=== PATIENT | male | born 1940 | race Caucasian/White ===

== ENCOUNTER 2017-06-19 10:20 | Emergency (ER) | payer OTHER, MEDICARE ==
[~2017-06-19] VITALS: Wt 86.2 kg
[~2017-06-19 10:20] MED LIST: COUMADIN1 MG PO; COUMADIN5 M2 PO; HYDROCODONE BIT1 T11 PO; KEFLEX500 M1 PO; KEFLEX500 MG PO; LOPRESSOR25 MG PO; SIMVASTATIN5 MG PO; ZOCOR10 MG PO; ZOLOFT25 MG PO
[2017-06-19 10:27] VITALS: BP 131/51
[2017-06-19 11:03] LABS: BASO % 0.4 % (0.0-1.0); EOS # 0.1 10*3/uL (0.0-0.4); EOS % 1.5 % (1.0-4.0); HEMATOCRIT 37.1 % (42.0-52.0); LYMPH # 0.9 10*3/uL (1.3-4.4); MEAN CELL VOLUME 92.5 fl (80.0-94.0); MEAN CORPUSCULAR HGB 29.9 pg (27.0-31.0); MEAN CORPUSCULAR HGB CONC 32.3 g/dl (33.0-37.0); MEAN PLATELET VOLUME 9.2 fl (9.6-12.3); MONO # 0.4 10*3/uL (0.1-1.0); MONO % 6.7 % (3.0-9.0); NEUT % 74.8 % (47.0-73.0); PLATELET COUNT AUTOMATED 165 10*3/uL (130-400); RED BLOOD COUNT 4.01 10*6/uL (4.50-5.90); RED CELL DISTRI WIDTH 13.7 % (0-14.5); WHITE BLOOD COUNT 5.4 10*3/uL (4.8-10.8)
[2017-06-19 11:18] LABS: ACT PARTIAL THROMBO TIME 43.6 SECONDS (20.8-31.5); INTERNATIONAL NORM RATIO 4.5 (2.0-3.5)
[2017-06-19 11:22] LABS: BUN 24 mg/dl (7-24); CHLORIDE 108 mmol/L (98-107); CREATININE 1.71 mg/dL (0.70-1.30); SODIUM 141 mmol/L (136-145)
[2017-06-19 11:24] LABS: TROPONIN I < 0.015 ng/ml (<0.045)
[2017-06-19] MEDS ORDERED: CEPHALEXIN500 M1 PO (13:11)
== END 2017-06-19 13:15 | disposition home or self-care (01) ==
LOC: ED 10:20
PROVIDERS: Emergency Medicine
DX: L03.211 Cellulitis of face (principal); R79.1 Abnormal coagulation profile; R05 Cough; Z79.899 Other long term (current) drug therapy; Z79.02 Long term (current) use of antithrombotics/antiplatelets

== ENCOUNTER 2017-09-03 08:00 | Emergency (ER) | payer MEDICARE, OTHER ==
[~2017-09-03] VITALS: Wt 74.8 kg
--- NOTE | ~2017-09-03 | EKG ---
[place], [place] ELECTROCARDIOGRAM REPORT NAME: SERENA CHEN UNIT #: [id number] ROOM: DOCTOR: EPIPHDONNY DRAFT REPORT BIRTHDATE: [birth year] [facility] Test Date: 2017-09-03 Test Time: 08:04:39 Pat Name: SERENA CHEN Department: Room: Gender: Home Health Nurse: Ruddy : 1940 Requested By: ALE ALCOCER Order Number: [id number] Reading MD: Yasir Hatch MD Measurements Intervals [place] Rate: 107 P: 68 VA: 141 QRS: 80 QRSD: 98 T: 53 QT: 340 QTc: 454 Interpretive Statements Sinus tachycardia Ventricular premature complex Borderline repolarization abnormality Electronically Signed On 09-03-2017 20:35:41 PDT by Yasir Hatch MD CM:EKGRPT:ELECTROCARDIOGRAM REPORT 3 34 ALE BERNAL DRAFT REPORT ALE ALCOCER M.D.
[~2017-09-03 08:00] MED LIST changes: +CEPHALEXIN500 M1 PO
[2017-09-03 08:25] LABS: BASO % 0.1 % (0.0-1.0); EOS # 0.1 10*3/uL (0.0-0.4); EOS % 0.7 % (1.0-4.0); HEMATOCRIT 37.9 % (42.0-52.0); LYMPH # 0.7 10*3/uL (1.3-4.4); LYMPH % 10.4 % (27.0-41.0); MEAN CELL VOLUME 92.9 fl (80.0-94.0); MEAN CORPUSCULAR HGB 29.4 pg (27.0-31.0); MEAN CORPUSCULAR HGB CONC 31.7 g/dl (33.0-37.0); MEAN PLATELET VOLUME 9.2 fl (9.6-12.3); MONO # 0.3 10*3/uL (0.1-1.0); MONO % 4.6 % (3.0-9.0); NEUT # 5.8 10*3/uL (2.3-7.9); NEUT % 83.9 % (47.0-73.0); PLATELET COUNT AUTOMATED 125 10*3/uL (130-400); RED BLOOD COUNT 4.08 10*6/uL (4.50-5.90); RED CELL DISTRI WIDTH 15.5 % (0-14.5); WHITE BLOOD COUNT 6.9 10*3/uL (4.8-10.8)
[2017-09-03 08:40] LABS: ALBUMIN 3.4 gm/dl (3.1-4.5); CREATININE 1.97 mg/dL (0.70-1.30); INTERNATIONAL NORM RATIO 3.9 (2.0-3.5); POTASSIUM 4.3 mmol/L (3.5-5.1); TOTAL PROTEIN 8.1 gm/dL (6.4-8.2)
[2017-09-03] MEDS ORDERED: VIBRAMYCIN100 MG PO (11:11)
[2017-09-03 11:31] VITALS: BP 162/90
== END 2017-09-03 11:34 | disposition home or self-care (01) ==
LOC: ED 08:00
PROVIDERS: Emergency Medicine
DX: J44.1 Chronic obstructive pulmonary disease with (acute) exacerbation (principal); F17.200 Nicotine dependence, unspecified, uncomplicated; Z79.899 Other long term (current) drug therapy; Z79.02 Long term (current) use of antithrombotics/antiplatelets

== ENCOUNTER 2017-09-18 18:04 | Emergency (ER) | payer MEDICARE, OTHER ==
[~2017-09-18] VITALS: Wt 86.2 kg
--- NOTE | ~2017-09-18 | EKG ---
[place], [place] ELECTROCARDIOGRAM REPORT NAME: SERENA CHEN UNIT #: [id number] ROOM: DOCTOR: EPIPHANY DRAFT REPORT BIRTHDATE: [birth year] [facility] Test Date: 2017-09-18 Test Time: 21:22:10 Pat Name: SERENA CHEN Department: ER Room: 22 Gender: M Professor Of Medicine: EKG.NC : 1940 Requested By: GERONIMO SETH Order Number: [id number] Reading MD: James Bhatti MD Measurements Intervals [place] Rate: 97 P: 56 TX: 161 QRS: 75 QRSD: 92 T: 27 QT: 352 QTc: 447 Interpretive Statements Sinus rhythm Low voltage, precordial leads RSR' in V1 or V2, right VCD or RVH Artifact in lead(s) I,II,aVR,aVL,aVF,V1,V2,V3,V4,V5,V6 Compared to ECG 09/03/2017 08:04:39 Low QRS voltage now present Right ventricular hypertrophy now present RSR' in V1 or V2 now present Sinus tachycardia no longer present Ventricular premature complex(es) no longer present Electronically Signed On 09-21-2017 8:19:39 PDT by James Bhatti MD CM:EKGRPT:ELECTROCARDIOGRAM REPORT 21 8 GERONIMO SETH EPIPHANY DRAFT REPORT GERONIMO SETH
[~2017-09-18 18:04] MED LIST changes: +VIBRAMYCIN100 MG PO
[2017-09-18 18:44] LABS: BASO % 0.3 % (0.0-1.0); EOS # 0.1 10*3/uL (0.0-0.4); EOS % 1.3 % (1.0-4.0); HEMATOCRIT 39.3 % (42.0-52.0); HEMOGLOBIN 12.7 g/dl (14.0-18.0); LYMPH # 1.4 10*3/uL (1.3-4.4); LYMPH % 22.9 % (27.0-41.0); MEAN CELL VOLUME 92.5 fl (80.0-94.0); MEAN CORPUSCULAR HGB 29.9 pg (27.0-31.0); MEAN CORPUSCULAR HGB CONC 32.3 g/dl (33.0-37.0); MEAN PLATELET VOLUME 9.3 fl (9.6-12.3); MONO # 0.4 10*3/uL (0.1-1.0); MONO % 7.2 % (3.0-9.0); NEUT # 4.1 10*3/uL (2.3-7.9); PLATELET COUNT AUTOMATED 164 10*3/uL (130-400); RED BLOOD COUNT 4.25 10*6/uL (4.50-5.90); RED CELL DISTRI WIDTH 15.2 % (0-14.5)
[2017-09-18 19:01] LABS: ALBUMIN 3.2 gm/dl (3.1-4.5); CREATININE 2.07 mg/dL (0.70-1.30); POTASSIUM 5.1 mmol/L (3.5-5.1); TOTAL PROTEIN 7.9 gm/dL (6.4-8.2)
[2017-09-18 19:09] LABS: INTERNATIONAL NORM RATIO 8.7 (2.0-3.5)
[2017-09-18 20:53] LABS: INTERNATIONAL NORM RATIO 9.5 (2.0-3.5)
[2017-09-18 21:41] LABS: BILIRUBIN NEGATIVE (NEGATIVE); BLOOD 3+ (NEGATIVE); CLARITY SL CLOUDY (CLEAR); COLOR YELLOW (YELLOW); GLUCOSE NEGATIVE (NEGATIVE); KETONE NEGATIVE (NEGATIVE); LEUKO ESTERASE 3+ (NEGATIVE); NITRITE POSITIVE (NEGATIVE); PH 6.5 (5.0-9.0); UROBILINOGEN 0.2 E.U./dl (0.2-1.0)
[2017-09-18 21:47] LABS: BACTERIA 2+; MUCOUS TRACE; RBC TNTC rbc/hpf (0-2); WBC TNTC wbc/hpf (0-5)
[2017-09-19 01:00] VITALS: BP 123/78
== END 2017-09-19 01:00 | disposition short-term general hospital (02) ==
LOC: ED 18:04
PROVIDERS: Nurse Practitioner
DX: N39.0 Urinary tract infection, site not specified (principal); R79.1 Abnormal coagulation profile; R31.0 Gross hematuria; Z98.890 Other specified postprocedural states; Z79.01 Long term (current) use of anticoagulants; Z79.899 Other long term (current) drug therapy; Z86.73 Personal history of transient ischemic attack (TIA), and cerebral infarction without residual deficits

== ENCOUNTER 2017-11-23 17:31 | Inpatient (IN) | payer MEDICARE ==
[~2017-11-23] VITALS: Ht 175.3 cm; Wt 78.0 kg
--- NOTE | ~2017-11-23 | EKG ---
[place], [place] ELECTROCARDIOGRAM REPORT NAME: SERENA CHEN UNIT #: [id number] ROOM: 530 DOCTOR: GABE DRAFT REPORT BIRTHDATE: [birth year] [facility] Test Date: 2017-11-23 Test Time: 18:12:03 Pat Name: SERENA CHEN Department: Room: 530 Gender: M Mobile Mechanic: EKGSeanID : 1940 Requested By: MIGUEL ÁNGEL JIMENEZ Order Number: [id number] Reading MD: Osmin Miller MD Measurements Intervals [place] Rate: 77 P: 45 AR: 147 QRS: 68 QRSD: 96 T: 34 QT: 387 QTc: 438 Interpretive Statements Sinus rhythm Compared to ECG 09/18/2017 21:22:10 Right ventricular hypertrophy no longer present Electronically Signed On 11-24-2017 14:51:16 PDT by Osmin Miller MD CM:EKGRPT:ELECTROCARDIOGRAM REPORT 1812 [id number] MIGUEL ÁNGEL AMADOR DRAFT REPORT MIGUEL ÁNGEL JIMENEZ DO
[~2017-11-23 17:31] MED LIST changes: -SIMVASTATIN5 MG PO; +ZOCOR40 MG PO
[2017-11-23 17:33] VITALS: BP 147/76
[2017-11-23 18:21] LABS: ALBUMIN 3.1 gm/dl (3.1-4.5); CREATININE 2.01 mg/dL (0.70-1.30); POTASSIUM 4.1 mmol/L (3.5-5.1); TOTAL PROTEIN 7.9 gm/dL (6.4-8.2)
[2017-11-23 18:26] LABS: TROPONIN I 0.066 ng/ml (<0.045)
[2017-11-23 18:42] LABS: EOS # 0.1 10*3/uL (0.0-0.4); EOS % 3.2 % (1.0-4.0); HEMATOCRIT 32.7 % (42.0-52.0); HEMOGLOBIN 10.8 g/dl (14.0-18.0); LYMPH # 0.8 10*3/uL (1.3-4.4); LYMPH % 22.8 % (27.0-41.0); MEAN CELL VOLUME 96.7 fl (80.0-94.0); MEAN PLATELET VOLUME 9.9 fl (9.6-12.3); MONO # 0.3 10*3/uL (0.1-1.0); NEUT # 2.2 10*3/uL (2.3-7.9); NEUT % 64.7 % (47.0-73.0); RED BLOOD COUNT 3.38 10*6/uL (4.50-5.90); RED CELL DISTRI WIDTH 14.6 % (0-14.5); WHITE BLOOD COUNT 3.5 10*3/uL (4.8-10.8)
[2017-11-23 19:10] LABS: PLATELET COUNT AUTOMATED 91 10*3/uL (130-400)
[2017-11-23 19:30] VITALS: BP 149/50
[2017-11-23] MEDS ORDERED: ZANTAC 300300 MG PO (20:03)
[2017-11-23 21:20] LABS: INTERNATIONAL NORM RATIO 2.6 (2.0-3.5)
[2017-11-24] VITALS: BP 119/45
[2017-11-24 05:22] LABS: HEMATOCRIT 31.5 % (42.0-52.0); HEMOGLOBIN 10.2 g/dl (14.0-18.0); MEAN CELL VOLUME 96.9 fl (80.0-94.0); MEAN CORPUSCULAR HGB 31.4 pg (27.0-31.0); MEAN CORPUSCULAR HGB CONC 32.4 g/dl (33.0-37.0); MEAN PLATELET VOLUME 9.8 fl (9.6-12.3); RED BLOOD COUNT 3.25 10*6/uL (4.50-5.90); RED CELL DISTRI WIDTH 14.3 % (0-14.5)
[2017-11-24 05:41] LABS: ALBUMIN 2.8 gm/dl (3.1-4.5); CREATININE 1.83 mg/dL (0.70-1.30); PHOSPHOROUS 2.9 mg/dL (2.5-4.9); POTASSIUM 4.2 mmol/L (3.5-5.1); TOTAL PROTEIN 7.1 gm/dL (6.4-8.2)
[2017-11-24 05:42] LABS: FREE T4 1.16 ng/dl (0.76-1.46)
[2017-11-24 05:47] LABS: THYROID STIM HORMONE (HS) 0.845 uIU/ml (0.358-4.75)
[2017-11-24 06:00] LABS: PLATELET COUNT AUTOMATED 108 10*3/uL (130-400)
[2017-11-24 06:06] LABS: MICROCYTOSIS SLIGHT; PLATELET SUFFICIENCY LOW (NORMAL); TOTAL CELLS COUNTED 100 #CELLS
[2017-11-24 07:11] LABS: VITAMIN D, 25-HYDROXY 39.9 ng/mL (30-100)
[2017-11-24 10:30] LABS: INTERNATIONAL NORM RATIO 2.8 (2.0-3.5)
[2017-11-24 12:00] VITALS: BP 139/56
[2017-11-24] MEDS ORDERED: FERROUS SULFAT325 MG PO (14:38)
[2017-11-24] MEDS ORDERED: FLOMAX0.4 MG PO (14:41)
[2017-11-24] MEDS ORDERED: B121000 MCG/1 IM (14:42)
[2017-11-24 16:00] VITALS: BP 136/58
[2017-11-24 20:00] VITALS: BP 127/50
[2017-11-25] VITALS: BP 124/50
[2017-11-25 05:18] LABS: HEMATOCRIT 32.5 % (42.0-52.0); HEMOGLOBIN 10.4 g/dl (14.0-18.0); MEAN CELL VOLUME 97.3 fl (80.0-94.0); MEAN CORPUSCULAR HGB 31.1 pg (27.0-31.0); MEAN PLATELET VOLUME 9.1 fl (9.6-12.3); PLATELET COUNT AUTOMATED 127 10*3/uL (130-400); RED BLOOD COUNT 3.34 10*6/uL (4.50-5.90); RED CELL DISTRI WIDTH 14.4 % (0-14.5); WHITE BLOOD COUNT 6.6 10*3/uL (4.8-10.8)
[2017-11-25 05:50] LABS: CREATININE 1.7 mg/dL (0.70-1.30); POTASSIUM 4.2 mmol/L (3.5-5.1)
[2017-11-25 05:52] LABS: PLATELET SUFFICIENCY LOW (NORMAL); TOTAL CELLS COUNTED 100 #CELLS
[2017-11-25 05:53] LABS: TOXIC GRANULATION SLIGHT
[2017-11-25 08:00] VITALS: BP 120/60
[2017-11-25 11:23] LABS: INTERNATIONAL NORM RATIO 4.9 (2.0-3.5)
[2017-11-25 12:00] VITALS: BP 136/59
[2017-11-25 16:00] VITALS: BP 141/58
[2017-11-25 20:00] VITALS: BP 129/52
[2017-11-26] VITALS: BP 114/70; BP 129/52
[2017-11-26 05:15] LABS: BASO % 0.2 % (0.0-1.0); HEMATOCRIT 31.3 % (42.0-52.0); HEMOGLOBIN 10.1 g/dl (14.0-18.0); LYMPH # 0.3 10*3/uL (1.3-4.4); LYMPH % 5.1 % (27.0-41.0); MEAN CELL VOLUME 96.9 fl (80.0-94.0); MEAN CORPUSCULAR HGB 31.3 pg (27.0-31.0); MEAN CORPUSCULAR HGB CONC 32.3 g/dl (33.0-37.0); MEAN PLATELET VOLUME 9.2 fl (9.6-12.3); MONO # 0.3 10*3/uL (0.1-1.0); MONO % 4.3 % (3.0-9.0); NEUT # 5.2 10*3/uL (2.3-7.9); NEUT % 88.7 % (47.0-73.0); PLATELET COUNT AUTOMATED 125 10*3/uL (130-400); RED BLOOD COUNT 3.23 10*6/uL (4.50-5.90); RED CELL DISTRI WIDTH 14.4 % (0-14.5); WHITE BLOOD COUNT 5.9 10*3/uL (4.8-10.8)
[2017-11-26 05:41] LABS: CREATININE 1.58 mg/dL (0.70-1.30); POTASSIUM 4.2 mmol/L (3.5-5.1)
[2017-11-26 06:54] LABS: INTERNATIONAL NORM RATIO 4.9 (2.0-3.5)
[2017-11-26 08:00] VITALS: BP 136/61
[2017-11-26 12:00] VITALS: BP 141/52
[2017-11-26 16:00] VITALS: BP 131/54
[2017-11-26 20:00] VITALS: BP 103/59
[2017-11-27] VITALS: BP 133/63
[2017-11-27 07:21] LABS: INTERNATIONAL NORM RATIO 3.6 (2.0-3.5)
[2017-11-27 08:00] VITALS: BP 133/62
[2017-11-27 12:00] VITALS: BP 136/63
[2017-11-27] MEDS ORDERED: COUMADIN4 M2 PO (13:47)
[2017-11-27] MEDS ORDERED: MUCINEX ER600 MG PO (13:47)
[2017-11-27] MEDS ORDERED: PREDNISONE10 MG PO (13:47)
[2017-11-27] MEDS ORDERED: AVPAK AZITHROM250 MG PO (13:47)
[2017-11-27 16:00] VITALS: BP 126/54
[2017-11-27 20:00] VITALS: BP 142/54
== END 2017-11-27 21:45 | disposition home health service (06) | DRG 871 ==
LOC: ED 17:31 → 5E 18:43 → EDHOLD 18:43 → 5E 18:59
PROVIDERS: Emergency Medicine; Internal Medicine
DX: A41.9 Sepsis, unspecified organism (principal); N17.0 Acute kidney failure with tubular necrosis; J18.9 Pneumonia, unspecified organism; J44.1 Chronic obstructive pulmonary disease with (acute) exacerbation; E44.0 Moderate protein-calorie malnutrition; F33.9 Major depressive disorder, recurrent, unspecified; J44.0 Chronic obstructive pulmonary disease with (acute) lower respiratory infection; I48.0 Paroxysmal atrial fibrillation; G89.29 Other chronic pain; D53.9 Nutritional anemia, unspecified; R73.9 Hyperglycemia, unspecified; R74.8 Abnormal levels of other serum enzymes; E53.8 Deficiency of other specified B group vitamins; Z66 Do not resuscitate; Z51.5 Encounter for palliative care; N18.3 Chronic kidney disease, stage 3 (moderate); E78.00 Pure hypercholesterolemia, unspecified; R79.1 Abnormal coagulation profile; R65.20 Severe sepsis without septic shock; K21.9 Gastro-esophageal reflux disease without esophagitis; M54.9 Dorsalgia, unspecified; E87.8 Other disorders of electrolyte and fluid balance, not elsewhere classified; Z79.01 Long term (current) use of anticoagulants; Z79.899 Other long term (current) drug therapy; I69.369 Other paralytic syndrome following cerebral infarction affecting unspecified side; Z87.440 Personal history of urinary (tract) infections; Z87.891 Personal history of nicotine dependence; Z88.1 Allergy status to other antibiotic agents; Z68.25 Body mass index [BMI] 25.0-25.9, adult

== ENCOUNTER 2018-02-15 22:18 | Emergency (ER) | payer MEDICARE, OTHER ==
[~2018-02-15] VITALS: Ht 162.5 cm; Wt 81.6 kg
--- NOTE | ~2018-02-15 | EKG ---
[place], [place] ELECTROCARDIOGRAM REPORT NAME: SERENA CHEN UNIT #: [id number] ROOM: DOCTOR: [facility] DRAFT REPORT BIRTHDATE: [birth year] [facility] Test Date: 2018-02-15 Test Time: 22:57:57 Pat Name: SERENA CHEN Department: Room: Gender: Cert Occupational Therapy Asst: Jayshree Mg : 1940 Requested By: SHELBY ECHAVARRIA Order Number: [id number] Reading MD: Osmin Miller MD Measurements Intervals [place] Rate: 108 P: 55 MI: 147 QRS: 75 QRSD: 89 T: 31 QT: 342 QTc: 459 Interpretive Statements Sinus tachycardia Ventricular premature complex Low voltage, precordial leads Baseline wander in lead(s) V3 Compared to ECG 11/23/2017 18:12:03 Ventricular premature complex(es) now present Low QRS voltage now present Sinus rhythm no longer present Electronically Signed On 02-25-2018 23:48:41 PST by Osmin Miller MD CM:EKGRPT:ELECTROCARDIOGRAM REPORT [id number] SHELBY AMADOR DRAFT REPORT SHELBY ECHAVARRIA DO
[~2018-02-15 22:18] MED LIST changes: +AVPAK AZITHROM250 MG PO; +B121000 MCG/1 IM; +COUMADIN4 M2 PO; +FERROUS SULFAT325 MG PO; +FLOMAX0.4 MG PO; +MUCINEX ER600 MG PO; +PREDNISONE10 MG PO; +ZANTAC 300300 MG PO
[2018-02-15 22:59] LABS: HEMATOCRIT 35.3 % (42.0-52.0); HEMOGLOBIN 11.3 g/dl (14.0-18.0); MEAN CELL VOLUME 99.2 fl (80.0-94.0); MEAN CORPUSCULAR HGB 31.7 pg (27.0-31.0); MEAN PLATELET VOLUME 11.5 fl (9.6-12.3); RED BLOOD COUNT 3.56 10*6/uL (4.50-5.90); RED CELL DISTRI WIDTH 14.3 % (0-14.5); WHITE BLOOD COUNT 4.7 10*3/uL (4.8-10.8)
[2018-02-15 23:15] LABS: ALBUMIN 3.4 gm/dl (3.1-4.5); ALKALINE PHOSPHATASE 82 U/L (45-117); BUN 25 mg/dl (7-24); CHLORIDE 109 mmol/L (98-107); CREATININE 1.57 mg/dL (0.70-1.30); POTASSIUM 4.3 mmol/L (3.5-5.1); SGOT/AST 17 IU/L (3-35); SODIUM 143 mmol/L (136-145); TOTAL PROTEIN 7.5 gm/dL (6.4-8.2)
[2018-02-15 23:20] VITALS: BP 131/71
[2018-02-15 23:20] LABS: SGPT/ALT 23 U/L (12-78)
[2018-02-15 23:24] LABS: TROPONIN I < 0.015 ng/ml (<0.045)
[2018-02-15 23:41] LABS: BASOPHILS 1 % (0-1); PLATELET SUFFICIENCY LOW (NORMAL); TOTAL CELLS COUNTED 100 #CELLS
[2018-02-16] MEDS ORDERED: PREDNISONE50 MG PO (00:14)
[2018-02-16 10:25] LABS: PLATELET COUNT AUTOMATED 29 10*3/uL (130-400)
[2018-07-14] MEDS ORDERED: MYRBETRIQ50 M1 PO (15:07)
[2018-07-14] MEDS ORDERED: COUMADIN5 M2 PO (15:08)
[2018-07-14] MEDS ORDERED: COUMADIN7.5 M1 PO (15:10)
[2018-07-16] MEDS ORDERED: NYSTOP60 GM T (10:47)
[2018-07-16] MEDS ORDERED: CEPHALEXIN500 M1 PO (10:47)
== END 2018-02-16 00:17 | disposition home or self-care (01) ==
LOC: ED 22:18
PROVIDERS: Student in an Organized Health Care Education/Training Program
DX: R21 Rash and other nonspecific skin eruption (principal); D69.6 Thrombocytopenia, unspecified; R00.0 Tachycardia, unspecified; K21.9 Gastro-esophageal reflux disease without esophagitis; J44.9 Chronic obstructive pulmonary disease, unspecified; I48.91 Unspecified atrial fibrillation; G89.29 Other chronic pain; N18.3 Chronic kidney disease, stage 3 (moderate); Z87.891 Personal history of nicotine dependence; Z88.1 Allergy status to other antibiotic agents

== ENCOUNTER 2018-12-21 15:39 | Inpatient (IN) | payer MEDICARE ==
[~2018-12-21] VITALS: Ht 160 cm; Wt 68.5 kg
[2018-12-21 15:39] VITALS: BP 126/65
[~2018-12-21 15:39] MED LIST changes: +COUMADIN7.5 M1 PO; +MYRBETRIQ50 M1 PO; +NYSTOP60 GM T; +PREDNISONE50 MG PO
[2018-12-21 16:32] LABS: BASO % 0.4 % (0.0-1.0); EOS # 0.1 10*3/uL (0.0-0.4); EOS % 1.4 % (1.0-4.0); HEMATOCRIT 36.2 % (42.0-52.0); HEMOGLOBIN 11.4 g/dl (14.0-18.0); LYMPH % 12.2 % (27.0-41.0); MEAN CELL VOLUME 98.4 fl (80.0-94.0); MEAN CORPUSCULAR HGB CONC 31.5 g/dl (33.0-37.0); MEAN PLATELET VOLUME 9.1 fl (9.6-12.3); MONO # 0.4 10*3/uL (0.1-1.0); MONO % 5.1 % (3.0-9.0); NEUT # 6.4 10*3/uL (2.3-7.9); NEUT % 80.5 % (47.0-73.0); PLATELET COUNT AUTOMATED 179 10*3/uL (130-400); RED BLOOD COUNT 3.68 10*6/uL (4.50-5.90); WHITE BLOOD COUNT 7.9 10*3/uL (4.8-10.8)
--- NOTE | 2018-12-21 16:35 | NUR ---
PT POSITIONED FOR COMFORT WITH FAMILY @ BEDSIDE AND SAFETY PRECAUTIONS INTACT.
[2018-12-21 16:47] LABS: ALBUMIN 2.8 gm/dl (3.1-4.5); ALKALINE PHOSPHATASE 87 U/L (45-117); BUN 22 mg/dl (7-24); CHLORIDE 108 mmol/L (98-107); CREATININE 1.47 mg/dL (0.70-1.30); LIPASE 81 U/L (73-393); POTASSIUM 4.3 mmol/L (3.5-5.1); SGOT/AST 21 IU/L (3-35); SGPT/ALT 19 U/L (12-78); SODIUM 140 mmol/L (136-145); TOTAL PROTEIN 8.3 gm/dL (6.4-8.2); TROPONIN I < 0.015 ng/ml (<0.045)
[2018-12-21 16:55] LABS: ACT PARTIAL THROMBO TIME 43.4 SECONDS (20.0-32.1); INTERNATIONAL NORM RATIO 4.5 (2.0-3.5)
[2018-12-21 17:45] VITALS: BP 108/50
--- NOTE | 2018-12-21 17:46 | NUR ---
PT AND FAMILY AWARE THAT REQUIRE A URINE SAMPLE FOR ANALYSIS,PT STILL UNABLE TO PROVIDE @ THIS TIME,NO ADDITIONAL COMPLAINTS VOICED.
--- NOTE | 2018-12-21 19:00 | NUR ---
PT PROVIDED A BOX LUNCH AND POSITONED FOR COMFORT,FAMILY @ BEDSIDE AND CALL LIGHT WITHIN REACH.
[2018-12-21] MEDS ORDERED: FEOSOL325 MG PO (19:36)
[2018-12-21 20:18] VITALS: BP 128/62
[2018-12-21 20:45] VITALS: BP 129/60
--- NOTE | 2018-12-21 20:45 | NUR ---
Time: 2044 A 78 year old MALE admitted to under services of RIGO LOVE DO. Pt. arrived via bed from ER. Chief complaint: UNSTAGEABLE DECUBITUS ULCER. HISSOM,LENO
--- NOTE | 2018-12-21 21:00 | NUR ---
PT REFUSING TO HAVE FLU VACCINE AT THIS TIME.
--- NOTE | 2018-12-21 22:55 | NUR ---
INFORMED DR PELAEZ OF THE NEED FOR AN ORDER TO STRAIGHT CATH PT DUE TO PARALYSIS AND INCONTINENCE FOR URINE CULTURE
--- NOTE | 2018-12-21 23:20 | NUR ---
PT STRAIGHT CATHETERIZED TO OBTAIN URINE SAMPLE. TOLERATED WELL. 80ML OF CLOUDY CARLA URINE OUT. [facility] PROVIDED
[2018-12-21 23:29] LABS: BILIRUBIN NEGATIVE (NEGATIVE); BLOOD 3+ (NEGATIVE); CLARITY TURBID (CLEAR); COLOR YELLOW (YELLOW); GLUCOSE NEGATIVE (NEGATIVE); KETONE NEGATIVE (NEGATIVE); LEUKO ESTERASE 3+ (NEGATIVE); NITRITE NEGATIVE (NEGATIVE); PH 6.5 (5.0-9.0); SPECIFIC GRAVITY 1.015 (1.005-1.030); UROBILINOGEN 0.2 E.U./dl (0.2-1.0)
[2018-12-21 23:37] LABS: WBC TNTC wbc/hpf (0-5)
[2018-12-22] VITALS: BP 140/58
--- NOTE | 2018-12-22 01:09 | NUR ---
Patient resting quietly with no c/o discomfort. Respirations easy and regular. Vital signs stable. No overt distress. BED ALARM ON. SIDE RAILS UP. CALL LIGHT WITHIN REACH HISSOM,LENO
--- NOTE | 2018-12-22 01:48 | NUR ---
24 HR chart check completed.
--- NOTE | 2018-12-22 02:26 | NUR ---
WOUND CARE NURSE UP TO THE FLOOR. INFORMED THAT PATIENT WAS AWAKE AND READY TO BE SEEN. ASKED PT IF HE WOULD LIKE A PAIN PILL PRIOR TO WOUND DRESSING. SHOOK HEAD YES AND GAVE A THUMBS UP. MEDICATED PER ORDER. WILL CONTINUE TO MONITOR. NO OTHER CONCERNS AT THIS TIME. RESTING IN BED. NO S/S OF DISTRESS NOTED. BED ALARM ON. CALL LIGHT WITHIN REACH.
--- NOTE | 2018-12-22 02:40 | NUR ---
LAURYNSERENA CALLEJAS [id number] Please refer to the physician's history and physical for past medical history, comorbid conditions, and allergies. Diagnosis: UNSTAGEABLE DECUBITUS ULCER Barrett Score: 15,AT RISK WOUND DESCRIPTIONS: Wound Number: 1 Location of the wound: sacrum Type of wound: unstageable Thickness: Full Size: 2.6cm x 2.0cm x 0.8cm Tunnelin.4 cm at 11 o'clock Undermining: none Sinus Tract: none Presence of Exudate: serosangunieous Amount: Light Color: Red, yellow, brown glynn Odor: Medium Periwound Skin Appearance: Erythema Wound edges: approximated Pain (associated with wound): none at time of assessment How does patient state this happened? pt has diffculty getting words out but when asked if it was days, weeks, months or years he said yes to years. Surface the patient is resting on: Isoflex SKIN PREVENTION RECOMMENDATION: 1. Pressure redistribution support surface as appropriate 2. Elevate heels 3. Remove boots/TEDS every shift and reapply 4. Head of bed 30 degrees as tolerated 5. Assess nutrition and hydration 6. Manage moisture 7. Avoid the use of containment devices while in bed 8. Use absorptive products on surfaces limit layers of linens on bed 9. Turn and reposition every 1-2 hours in bed and every 1 hour in chair as tolerated 10. Weight shifts every 15 minutes while up in chair 11. Offloading with pillows or device to keep heels elevated off bed 12. Monitor skin at least every shift 13. Inspect under medical devices twice a day WOUND TREATMENT RECOMMENDATIONS: Continue Wheelchair cushion when oob. Dr. Waite already on consult for possible debridement Continue unstageable guidelines to sacrum Imaging studies already completed at time of assessment.
--- NOTE | 2018-12-22 03:30 | NUR ---
NORCO EFFECTIVE PER PT
--- NOTE | 2018-12-22 04:15 | NUR ---
Patient sleeping. Respirations relaxed and easy. Siderails up . [place] on. BED ALARM ON. CALL LIGHT WITHIN REACH HISSOM,LENO
--- NOTE | 2018-12-22 06:20 | NUR ---
DR HUNT NOTIFIED OF NEW CONSULT. NO NEW ORDERS AT THIS TIME.
[2018-12-22 06:53] LABS: BASO % 0.2 % (0.0-1.0); EOS # 0.1 10*3/uL (0.0-0.4); EOS % 2.1 % (1.0-4.0); HEMATOCRIT 32.8 % (42.0-52.0); HEMOGLOBIN 10.4 g/dl (14.0-18.0); LYMPH # 1.1 10*3/uL (1.3-4.4); LYMPH % 18.6 % (27.0-41.0); MEAN CELL VOLUME 95.9 fl (80.0-94.0); MEAN CORPUSCULAR HGB 30.4 pg (27.0-31.0); MEAN CORPUSCULAR HGB CONC 31.7 g/dl (33.0-37.0); MEAN PLATELET VOLUME 9.2 fl (9.6-12.3); MONO # 0.4 10*3/uL (0.1-1.0); MONO % 6.4 % (3.0-9.0); NEUT # 4.2 10*3/uL (2.3-7.9); PLATELET COUNT AUTOMATED 162 10*3/uL (130-400); RED BLOOD COUNT 3.42 10*6/uL (4.50-5.90); RED CELL DISTRI WIDTH 13.8 % (0-14.5); WHITE BLOOD COUNT 5.8 10*3/uL (4.8-10.8)
[2018-12-22 07:03] LABS: CREATININE 1.49 mg/dL (0.70-1.30); PHOSPHOROUS 2.7 mg/dL (2.5-4.9); POTASSIUM 4.2 mmol/L (3.5-5.1)
[2018-12-22 07:23] LABS: INTERNATIONAL NORM RATIO 4.5 (2.0-3.5)
[2018-12-22 07:58] VITALS: BP 111/41
--- NOTE | 2018-12-22 08:47 | NUR ---
Awake and alert. expressive aphasia, able to make needs known, Dtr called in and update was given. STEVIE choi applied. foot drop evident Rt>lt.
--- NOTE | 2018-12-22 09:00 | NUR ---
Financial Aid in to talk to patient. Patient states lives at home with son. There are few steps in the home. Physician: yandy Pharmacy: [facility] Patient's level of ADLs: MAX ASSIST Patient has working utilities: all working DME: wheelchair, randa lift, hospital bed Follow-up physician's appointment after d/c: will be made by hospitalist nurse director upon discharge Does patient want to access PORTAL?: no Discharge plan . case management visits with patient, patient is non verbal, per chart lives at home with family, case management will contact family and discuss a discharge plan, case management will follow. RIGO RAMIREZ
--- NOTE | 2018-12-22 12:00 | NUR ---
Dr. Waite in to evaulate. States will do debridement tomorrow.
--- NOTE | 2018-12-22 14:25 | NUR ---
PT MEDICATED WITH PO NORCO PER PRN ORDER FOR C/O PAIN. UNABLE TO RATE PAIN ON A 1/10 SCALE. WILL MONITOR EFFECTIVENESS.
[2018-12-22 16:05] VITALS: BP 104/50
--- NOTE | 2018-12-22 16:14 | NUR ---
Dr. Waite spoke w/ Dr. Hammond re: planned debridement scheduled for AM. Son in room and aware of scheduled surgery. States sister who is POA will be in later to sign permit. however INR is 4.5 therfore it was recommended for FFP to be given.
--- NOTE | 2018-12-22 16:25 | NUR ---
Telephone permission obtained fro dtr. [place] for FFP administration.
[2018-12-22 17:58] VITALS: BP 98/42
[2018-12-23] VITALS (8 sets, daily range): BP systolic 89–128; BP diastolic 36–71
[2018-12-23 06:55] LABS: BASO % 0.2 % (0.0-1.0); EOS # 0.1 10*3/uL (0.0-0.4); EOS % 2.2 % (1.0-4.0); HEMATOCRIT 28.8 % (42.0-52.0); HEMOGLOBIN 9.1 g/dl (14.0-18.0); LYMPH % 19.6 % (27.0-41.0); MEAN CORPUSCULAR HGB 30.3 pg (27.0-31.0); MEAN CORPUSCULAR HGB CONC 31.6 g/dl (33.0-37.0); MEAN PLATELET VOLUME 9.3 fl (9.6-12.3); MONO # 0.3 10*3/uL (0.1-1.0); NEUT # 3.6 10*3/uL (2.3-7.9); NEUT % 71.8 % (47.0-73.0); PLATELET COUNT AUTOMATED 139 10*3/uL (130-400); RED CELL DISTRI WIDTH 13.9 % (0-14.5)
[2018-12-23 07:23] LABS: ALBUMIN 2.2 gm/dl (3.1-4.5); POTASSIUM 3.8 mmol/L (3.5-5.1); TOTAL PROTEIN 6.5 gm/dL (6.4-8.2)
[2018-12-23 07:24] LABS: CREATININE 1.47 mg/dL (0.70-1.30)
[2018-12-23 07:25] LABS: INTERNATIONAL NORM RATIO 2.6 (2.0-3.5)
--- NOTE | 2018-12-23 07:58 | NUR ---
Dr. Bowen aware of INR 2.6
--- NOTE | 2018-12-23 09:00 | NUR ---
case management visits with patient, family visiting including daughter and ALBERTOAdams Dixon, discussed with them patient going to a short term retirement for rehab, and wound care prior to returning home, daughter was in agreement. given choice of facilities she chose [facility] as first choice and [facility] as second choice, senior materials planner will make referral to both facilities, case management will follow
--- NOTE | 2018-12-23 11:42 | NUR ---
To OR via bed. Family present in room.
--- NOTE | 2018-12-23 12:07 | NUR ---
1 picture taken of coccyx wound prior to I&D
--- NOTE | 2018-12-23 14:36 | NUR ---
Returned from OR , Family request Case mgt involvement for home care. Case mgt aware.
--- NOTE | 2018-12-23 16:00 | NUR ---
Medicated as ordered. Respirations easy and even. Skin warm and dry. Family at bedside. No acute distress noted at this time.
[2018-12-24] VITALS: BP 103/44
--- NOTE | 2018-12-24 03:00 | NUR ---
PAIN ASSESSMENT COMPLETED. PATIENT NODDED YES TO PAIN. MEDICATED WITH NORCO PER PRN ORDER FOR PAIN. SEE EMAR. WILL CONTINUE TO MONITOR.
--- NOTE | 2018-12-24 04:19 | NUR ---
Upon discharge recommend patient to follow up for wound care in outpatient setting continue current wound care orders at discharging facility.
[2018-12-24 06:15] LABS: BASO % 0.2 % (0.0-1.0); EOS # 0.1 10*3/uL (0.0-0.4); EOS % 2.5 % (1.0-4.0); HEMATOCRIT 30.3 % (42.0-52.0); HEMOGLOBIN 9.3 g/dl (14.0-18.0); LYMPH # 1.1 10*3/uL (1.3-4.4); LYMPH % 19.5 % (27.0-41.0); MEAN CORPUSCULAR HGB 30.4 pg (27.0-31.0); MEAN CORPUSCULAR HGB CONC 30.7 g/dl (33.0-37.0); MEAN PLATELET VOLUME 9.4 fl (9.6-12.3); MONO # 0.3 10*3/uL (0.1-1.0); MONO % 5.8 % (3.0-9.0); NEUT # 4.1 10*3/uL (2.3-7.9); NEUT % 71.6 % (47.0-73.0); PLATELET COUNT AUTOMATED 150 10*3/uL (130-400); RED BLOOD COUNT 3.06 10*6/uL (4.50-5.90); RED CELL DISTRI WIDTH 13.8 % (0-14.5); WHITE BLOOD COUNT 5.7 10*3/uL (4.8-10.8)
[2018-12-24 06:23] LABS: INTERNATIONAL NORM RATIO 2.6 (2.0-3.5)
[2018-12-24 06:40] LABS: ALBUMIN 2.3 gm/dl (3.1-4.5); BUN 17 mg/dl (7-24); CHLORIDE 110 mmol/L (98-107); CREATININE 1.38 mg/dL (0.70-1.30); POTASSIUM 3.9 mmol/L (3.5-5.1); SGOT/AST 15 IU/L (3-35); SGPT/ALT 16 U/L (12-78); SODIUM 141 mmol/L (136-145)
[2018-12-24 06:41] LABS: ALKALINE PHOSPHATASE 65 U/L (45-117); TOTAL PROTEIN 6.9 gm/dL (6.4-8.2)
--- NOTE | 2018-12-24 07:55 | NUR ---
Initial referral faxed to Shannon at [facility], notified of need for isolation. Will fax PT/OT evals when patient is appropriate to participate. Waiting on review/acceptance.
[2018-12-24 08:00] VITALS: BP 123/44
--- NOTE | 2018-12-24 10:55 | NUR ---
Occupational Therapy evaluation completed at bedside on 4th floor. Precautions include isolation d/t positive MRSA wound, unstageable decubitus ulcer with recent debridement by Dr Waite,IV UE, right hemiplegia, expressive aphasia, RUE/RLE contractures. Patient was assisted at max assist level at home with ADLs; he is able to self feed. He was transferred hospital bed to chair with randa lift or max assist stand pivot. Patient to go to SNF for wound care and IV antibiotics. At this time patient declined sitting or out of bed activities as part of the evaluation despite multiple attempts. Recommend no further OT at this time. Discharge OT referral. Thank you. Kristal Friedman OTR/L
--- NOTE | 2018-12-24 10:55 | NUR ---
PHYSICAL THERAPY Physical therapy evaluation completed, 4E. Full details to follow. High complexity determined after chart review/ evaluation, [address]. Pt appears to be at baseline upon discussion. Attempted to perform bed mobility however Pt was not willing due to pain in multiple joints (coccyx and R UE/LE). Pt reports he was an intermittent randa lift, transfers were mainly a stand pivot and had a hospital bed at home. Recommending SNF at discharge for wound care management/medical management and therapy for functional mobility. Thank you Antonina Lord, PT, DPT
[2018-12-24 12:00] VITALS: BP 125/52
[2018-12-24] MEDS ORDERED: DOXYCYCLINE100 M3 PO (14:14)
--- NOTE | 2018-12-24 14:19 | NUR ---
[facility] accepted to [facility], 3 night stay complete, hospital exemption complete. patient is ok to go when medically stable for discharge.
--- NOTE | 2018-12-24 14:26 | NUR ---
Patient is discharged to [facility], transportation scheduled for 5 PM with [employer]. NH, nursing/ward maid and daughter in law all notified.
--- NOTE | 2018-12-24 17:06 | NUR ---
[facility] HERE TO TRANSPORT PT TO [facility].
--- NOTE | 2018-12-24 17:09 | NUR ---
I SPOKE WITH PT'S DAUGHTER MAY AND MADE HER AWARE OF PT BEING TRANSFERED TO [facility] AT THIS TIME.
== END 2018-12-24 17:06 | disposition other institution (70) | DRG 570 ==
LOC: ED 15:39 → EDHOLD 19:19 → 4E 19:19
PROVIDERS: Nurse Practitioner Family; Student in an Organized Health Care Education/Training Program; ADMIT Internal Medicine
PROC: 30233K1 Transfusion of Nonautologous Frozen Plasma into Peripheral Vein, Percutaneous Approach (ICD-10-PCS; principal; 2018-12-22)
PROC: 0JB70ZZ Excision of Back Subcutaneous Tissue and Fascia, Open Approach (ICD-10-PCS; 2018-12-23)
DX: L89.153 Pressure ulcer of sacral region, stage 3 (principal); E43 Unspecified severe protein-calorie malnutrition; N39.0 Urinary tract infection, site not specified; D68.59 Other primary thrombophilia; N13.30 Unspecified hydronephrosis; I69.351 Hemiplegia and hemiparesis following cerebral infarction affecting right dominant side; K40.90 Unilateral inguinal hernia, without obstruction or gangrene, not specified as recurrent; B95.61 Methicillin susceptible Staphylococcus aureus infection as the cause of diseases classified elsewhere; B96.4 Proteus (mirabilis) (morganii) as the cause of diseases classified elsewhere; R00.0 Tachycardia, unspecified; Z66 Do not resuscitate; Z51.5 Encounter for palliative care; E87.8 Other disorders of electrolyte and fluid balance, not elsewhere classified; E78.00 Pure hypercholesterolemia, unspecified; D53.9 Nutritional anemia, unspecified; G89.29 Other chronic pain; M54.5 Low back pain; F32.9 Major depressive disorder, single episode, unspecified; M85.88 Other specified disorders of bone density and structure, other site; I48.0 Paroxysmal atrial fibrillation; K21.9 Gastro-esophageal reflux disease without esophagitis; J41.0 Simple chronic bronchitis; N18.3 Chronic kidney disease, stage 3 (moderate); E53.8 Deficiency of other specified B group vitamins; Z88.1 Allergy status to other antibiotic agents; Z87.891 Personal history of nicotine dependence; Z84.89 Family history of other specified conditions; I69.320 Aphasia following cerebral infarction; Z82.49 Family history of ischemic heart disease and other diseases of the circulatory system; Z82.3 Family history of stroke; Z79.01 Long term (current) use of anticoagulants; Z68.26 Body mass index [BMI] 26.0-26.9, adult